=== PATIENT | male | born 1980 | race Caucasian/White ===

== ENCOUNTER 2018-12-14 19:35 | Emergency (ER) | payer MEDICAID ==
[~2018-12-14] VITALS: Ht 154.9 cm; Wt 74.2 kg
[2018-12-14 19:40] VITALS: Ht 154.9 cm; Wt 74.2 kg
[2018-12-14] MEDS ORDERED: KETOROLAC 60 MG INJ IM STA (22:45)
--- NOTE | 2018-12-14 22:53 | ERD ---
ER Documentation Chief Complaint Chief Complaint R SHOULDER PAIN, NECK PAIN X'S 2 DAYS HPI Patient is a 38 years old male with no known PMHx presenting to the clinic for neck pain x 2 days. Patient reports pain came about suddenly after waking up 2 days ago that has steadily worsen over time. Patient reports pain is now located onto right shoulder and posterior scalp. Patient reports stiffness. Patient admits to taking OTC tylenol without resolution. Patient denies fever, chills, night sweats, photophobia, emesis, nausea, trauma or injury. ROS All systems reviewed and are negative except as per history of present illness. Medications Home Meds Active Scripts Ibuprofen* (Motrin*) 800 Mg Tab, 800 MG PO Q6, #30 TAB Prov:MIGUEL BE PA-C 12/15/18 Tizanidine Hcl* (Tizanidine Hcl*) 6 Mg Capsule, 6 MG PO Q6H PRN for SPASTICITY for 7 Days, CAP Prov:MIGUEL BE PA-C 12/15/18 Allergies Allergies: Coded Allergies: No Known Allergy (Unverified , 12/14/18) PMhx/Soc Medical and Surgical Hx: pt denies Medical Hx, pt denies Surgical Hx Hx Alcohol Use: No Hx Substance Use: No Hx Tobacco Use: Yes (1/2 pack daily) Smoking Status: Current every day smoker Physical Exam Vitals Vital Signs Date Temp Pulse Resp B/P (MAP) Pulse Ox O2 O2 Flow FiO2 Time Delivery Rate 12/14/18 98.1 72 18 148/79 96 19:40 (102) Physical Exam Const: No acute distress Head: Atraumatic Eyes: Normal Conjunctiva. PERRLA. No nystagmus. ENT: Normal External Ears, Nose and Mouth. Neck: Tenderness across entire neck and right trapezius. Cervical muscle spasm noted. Kernig and Brudzinski test could not be performed as patient refused to lie down due to muscle stiffness and pain. Resp: Clear to auscultation bilaterally Cardio: Regular rate and rhythm, no murmurs Ext: No cyanosis, or edema Neur: Awake and alert Psych: Normal Mood and Affect Results 24 hrs Current Medications Medications Dose Sig/Radha Start Time Status Last (Trade) Ordered Route PRN Stop Time Admin Dose Reason Admin Ketorolac 60 mg ONCE STAT 12/14/18 DC 6/17/19 Tromethamine IM 22:45 22:59 (Toradol) 12/14/18 22:49 1,500 mg ONCE ONCE 12/14/18 DC 12/14/18 Methocarbamol PO 23:00 23:04 (Robaxin) 12/14/18 23:01 Procedures/MDM Patient was seen and evaluated for neck pain. Cervical X-Ray revealed Mild reversal of the normal lordotic curvature, which may be positional or secondary to muscle spasm. Patient admits to significant improvement in pain and is able to move upper extremity status post Toradol and Robaxin treatment. Patient is most likely experiencing severe muscle spasm. Low suspicion for meningitis due to stable vital, no photophobia, nausea, and emesis. Patient is stable and ready for discharge. F/U with PCP. Departure Diagnosis: Primary Impression: Muscle spasm Condition: Stable Patient Instructions: Muscle Spasm Referrals: [facility] Additional Instructions: Patient advised to return to the ED immediately for new or worsening symptoms. Patient advised to follow up with primary care provider in the next 24-48 hours. Patient verbalized understanding and agrees with treatment plan and course of action. If patient has no primary care they may follow up with [facility] [address] [place] [address] or [facility] [address] [place] [address] or [facility] [address] [place] [address] MIGUEL BE PA-C Dec 14, 2018 22:53
[2018-12-14] MEDS ORDERED: METHOCARBAMOL 750 MG TAB PO ONE (23:00)
[2018-12-15] MEDS ORDERED: TIZA6CAP7 PO (02:30)
[2018-12-15] MEDS ORDERED: IBUP800T48 PO (02:30)
[2018-12-15 02:40] VITALS: BP 132/83; PULSE 58; RESP 20
== END 2018-12-15 02:41 | disposition home or self-care (01) ==
LOC: FTE 19:35
DX: M62.838 Other muscle spasm (principal); F17.210 Nicotine dependence, cigarettes, uncomplicated
CPT/HCPCS: 72040; 96372; J1885; Z7502; Z7610